=== PATIENT | male | born 1960 | race African-American/Black ===

== ENCOUNTER 2020-12-18 09:11 | Emergency (ER) | payer SELFPAY ==
[~2020-12-18] VITALS: Ht 182.9 cm; Wt 79.5 kg
[~2020-12-18 09:11] MED LIST: NAPR-683 PO; ONDA4TAB7 PO
[2020-12-18] MEDS ORDERED: NAPROXEN 500 MG TABLET PO STA (10:26)
[2020-12-18] MEDS ORDERED: HYDROcodone/APAP 5/325MG 1 TAB TABLET PO ONE (10:30)
--- NOTE | 2020-12-18 12:00 | RAD ---
EXAM: 1. Left knee 4 views. 2. Left tibia/fibula 2 views. 3. Left ankle 3 views. 4. Left foot 3 views. 5. Right foot 3 views. HISTORY: Fell into a hole. Pain. COMPARISON: None. FINDINGS: An avulsion fracture is suspected along the left medial tibial spine, suggesting an anterio r cruciate ligament injury. There is no displaced fracture. The joint spaces of the left knee are salvador ntained. There is a small joint effusion. No fracture is appreciated within the left tibia/fibula. No fractures are appreciated at at the left ankle. Joint spaces and alignment are maintained. There is a fracture of the left first proximal phalanx. Joint spaces and alignment are maintained are maintained throughout the left foot. At the right ankle, there is a nondisplaced fracture along the lateral corner of the talar dome. This measures 6 mm. An ossicle along the dorsum of the talar neck is likely an accessory rather than an a nterior capsular avulsion fracture. The alignment of the mortise is maintained. Atherosclerotic calcifications are noted. IMPRESSION: 1. An avulsion fracture of the left medial tibial spine suggests an anterior cruciate ligament injury . 2. Fracture of the left first proximal phalanx. 3. Nondisplaced acute-appearing 6 mm osteochondral lesion along the lateral corner of the right talar dome. Electronically signed by: Brayan Lo MD (12/18/2020 11:58 AM) [id number]
--- NOTE | 2020-12-18 12:51 | PHYS DOC ---
Past Medical History Past Medical History: No Pertinent History Past Surgical History: Other Additional Past Surgical Histo: L WRIST, UNKNOWN BELLY SURG. Smoking Status: Current Every Day Smoker Alcohol Use: Heavy Drug Use: None General Adult EDM: Chief Complaint: MECHANICAL FALL HPI: HPI: Patient is a 60 year old male who presents to the ED today complaining of 9 out of 10 left knee pain, left gutierrez pain, left ankle pain, left foot pain, right ankle pain, symptoms began this morning after he stepped into a pot hole and fell. Patient denies any loss of consciousness. He states he is currently unable to ambulate due to the pain. Describes the pain as sharp and constant. Denies anything relieving the pain but states ambulation exacerbates the pain. Review of Systems: Review of Systems: Constitutional: Denies fever or chills. [] Musculoskeletal: Reports left knee pain, left gutierrez pain, left ankle pain, left foot pain, right ankle pain Denies back pain Neurologic: Denies headache, focal weakness or sensory changes. [] Psychiatric: Denies depression or anxiety. [] Heart Score: C/O Chest Pain: N/A Risk Factors: Risk Factors: DM, Current or recent (<one month) smoker, HTN, HLP, family history of CAD, obesity. Risk Scores: Score 0 - 3: 2.5% MACE over next 6 weeks - Discharge Home Score 4 - 6: 20.3% MACE over next 6 weeks - Admit for Clinical Observation Score 7 - 10: 72.7% MACE over next 6 weeks - Early Invasive Strategies Current Medications: Current Medications Medications (Trade) Dose Ordered Sig/Roslyn Start Time Stop Time Status Last Admin Dose Admin Acetaminophen/ Hydrocodone Bitart (Lortab 5/325) 1 tab 1X ONCE 12/18/20 10:30 12/18/20 10:31 DC 12/18/20 10:54 1 TAB Naproxen (Naprosyn) 500 mg 1X STAT 12/18/20 10:26 12/18/20 10:29 DC 12/18/20 10:54 500 MG Allergies: Allergies: Allergies Coded Allergies Type Severity Reaction Last Updated Verified No Known Drug Allergies 11/30/18 No Physical Exam: PE: , Constitutional: Well developed, well nourished, no acute distress, non-toxic appearance. [] Skin: Warm, dry, no erythema, no rash. [] Back: No tenderness, no CVA tenderness. [] Extremities: Left lower extremity with no obvious deformity, diffuse tenderness to the left anterior knee, left and left dorsal foot. Limited range of motion to the left knee due to pain. Full range of motion to the left foot. +2 left pedal pulse. Cap refill less than 2 seconds to left toes. Right lower extremity with no obvious deformity. Tenderness on palpation of diffusely on the right ankle. Full range of motion to the right ankle. Plus right pedal pulse. Cap refill less than 2 seconds the right lower extremity. +2 right pedal pulse. Neurologic: Alert and oriented X 3, normal motor function, normal sensory function, no focal deficits noted. [] Psychologic: Affect normal, judgement normal, mood normal. [] Current Patient Data: Vital Signs: Vital Signs Date Time Temp Pulse Resp B/P (MAP) Pulse Ox O2 Delivery O2 Flow Rate FiO2 12/18/20 10:32 68 20 135/78 (97) 97 Room Air 12/18/20 09:20 98.8 98.8 EKG: EKG: [] Radiology/Procedures: Radiology/Procedures: []PROCEDURE: ANKLE RIGHT 3V EXAM: 1. Left knee 4 views. 2. Left tibia/fibula 2 views. 3. Left ankle 3 views. 4. Left foot 3 views. 5. Right foot 3 views. HISTORY: Fell into a hole. Pain. COMPARISON: None. FINDINGS: An avulsion fracture is suspected along the left medial tibial spine, suggesting an anterior cruciate ligament injury. There is no displaced fracture. The joint spaces of the left knee are maintained. There is a small joint effusion. No fracture is appreciated within the left tibia/fibula. No fractures are appreciated at at the left ankle. Joint spaces and alignment are maintained. There is a fracture of the left first proximal phalanx. Joint spaces and alignment are maintained are maintained throughout the left foot. At the right ankle, there is a nondisplaced fracture along the lateral corner of the talar dome. This measures 6 mm. An ossicle along the dorsum of the talar neck is likely an accessory rather than an anterior capsular avulsion fracture. The alignment of the mortise is maintained. Atherosclerotic calcifications are noted. IMPRESSION: 1. An avulsion fracture of the left medial tibial spine suggests an anterior cruciate ligament injury. 2. Fracture of the left first proximal phalanx. 3. Nondisplaced acute-appearing 6 mm osteochondral lesion along the lateral corner of the right talar dome. Electronically signed by: Brayna Lo MD (12/18/2020 11:58 AM) [id number] DICTATED and SIGNED BY: ROX LO MD DATE: 12/18/20 [id number] 0 Course & Med Decision Making: Course & Med Decision Making Pertinent Labs and Imaging studies reviewed. (See chart for details) This is a 60-year-old male patient who presents to the ED today to be evaluated after falling into a pot hole, complaining of pain on the left knee to the left foot and right ankle. X-ray of the left knee, left tib-fib, left ankle and left foot, right ankle interpreted by radiologist were noted for an avulsion fracture of the left me dial tibial spine suggests an anterior cruciate ligament injury. Fracture of the left first proximal phalanx. Nondisplaced acute-appearing 6 mm osteochondral lesion along the lateral corner of the right talar dome. Spoke with Dr. Lee who stated patient can be splinted/immobilized and discharged to home, follow-up as an outpatient. Patient was provided bilateral orthopedic boots applied by the ED RN, neurovascular exam done by me post boot application is normal. Ice elevation encouraged. Follow-up with Ortho as an outpatient Roberta Disclaimer: Roberta Disclaimer: This electronic medical record was generated, in whole or in part, using a voice recognition dictation system. Departure Departure Impression: Primary Impression: Fall into hole Qualified Codes: W17.2XXA - Fall into hole, initial encounter Additional Impressions: Fracture tibia/fibula Qualified Codes: S82.202A - Unspecified fracture of shaft of left tibia, initial encounter for closed fracture; S82.402A - Unspecified fracture of shaft of left fibula, initial encounter for closed fracture Phalanx fracture, foot Qualified Codes: S92.414A - Nondisplaced fracture of proximal phalanx of right great toe, initial encounter for closed fracture Disposition: 01 HOME / SELF CARE / HOMELESS Condition: STABLE Referrals: NO PCP (PCP) DEVORA LEE MD Follow up in one week Patient Instructions: Foot Fracture-Brief, Tibial Fracture, Adult Additional Instructions: You were evaluated in the emergency room and noted to have an avulsion fracture of the left tibia with possible ligament injury. You also have a fracture of the left proximal phalanges of the first toe. Please wear the boots provided when ambulating until seen by the orthopedic doctor. Please call the provided orthopedic doctor in the next 7 days and follow-up MARIYA STRONG APRN Dec 18, 2020 12:51
[2020-12-18 14:02] VITALS: BP 127/76
== END 2020-12-18 14:45 | disposition home or self-care (01) ==
LOC: ER 09:11
DX: S82.202A Unspecified fracture of shaft of left tibia, initial encounter for closed fracture (principal); S82.402A Unspecified fracture of shaft of left fibula, initial encounter for closed fracture; S92.414A Nondisplaced fracture of proximal phalanx of right great toe, initial encounter for closed fracture; M25.571 Pain in right ankle and joints of right foot; F17.200 Nicotine dependence, unspecified, uncomplicated; F10.20 Alcohol dependence, uncomplicated; Y90.9 Presence of alcohol in blood, level not specified; W17.2XXA Fall into hole, initial encounter; Y93.89 Activity, other specified; Y92.89 Other specified places as the place of occurrence of the external cause; Y99.8 Other external cause status
CPT/HCPCS: 73564; 73590; 73610; 73630; 99285-25

== ENCOUNTER → 2021-04-08 | Outpatient (CLI) | payer OTHER ==
--- NOTE | 2021-04-08 14:54 | RAD ---
Two-view left femur HISTORY: Pain AP lateral views The visualized osseous structures appear normal. IMPRESSION: No acute findings. Electronically signed by: Flaco Benitez III, MD (04/08/2021 2:51 PM) [facility]
== END ==
LOC: RAD 08:40
PROVIDERS: ATTEND Family Medicine
DX: Z02.71 Encounter for disability determination (principal); M79.652 Pain in left thigh
CPT/HCPCS: 73552